=== PATIENT | male | born 1945 | race African-American/Black ===

== ENCOUNTER 2019-10-24 17:53 | Emergency (ER) | payer MEDICARE, OTHER ==
[~2019-10-24] VITALS: Ht 180.3 cm; Wt 79.1 kg
[~2019-10-24 17:53] MED LIST: ASPIRIN E.C. 8181 MG PO; FIBRE1 TAB PO; MULTIPLE VITAMI1 CAP PO; PERCOCET 325 MG1 TA2 PO; PERCOCET PO; VITAMIN C500 MG PO; XANAX 1MG1 MG PO; ZANTAC 7575 MG PO
[2019-10-24 18:43] LABS: BASO % 0.4 % (0.0-2.0); EOS # 0.1 (0.0-0.7); EOS % 0.7 % (0-4.0); GRAN # 6.5 (1.4-6.5); GRAN % 63.9 % (42.2-75.2); HEMATOCRIT 38.7 % (42.0-52.0); HEMOGLOBIN 13.6 g/dl (13.5-18.0); LYMPH # 2.9 (1.2-3.4); LYMPH % 28.6 % (20.0-51.0); MEAN CELL VOLUME 86 fl (80.0-100.0); MEAN CORPUSCULAR HEMOGLOBIN 30 pg (27.0-31.0); MEAN CORPUSCULAR HGB CONC 35 g/dl (33.0-37.0); MEAN PLATELET VOLUME 9.1 fl (7.4-10.4); MONO # 0.6 (0.1-0.6); PLATELET COUNT 225 K/mm3 (130-400); REDCELL DISTRIBUTION WIDTH-CV 13.2 % (11.5-14.5)
[2019-10-24 18:56] LABS: ALBUMIN 4.4 gm/dL (3.5-5.0); BILIRUBIN,TOTAL 0.6 mg/dL (0.0-1.0); C-REACTIVE PROTEIN 1.2 mg/dL (0.0-0.9); CALCIUM 9.7 mg/dL (8.4-10.2); CREATININE, serum 1.38 (0.66-1.25); TOTAL PROTEIN 8.7 gm/dL (6.4-8.2)
[2019-10-24 19:05] LABS: ERYTHROCYTE SEDIMENTATION RATE 20 mm/hr (0-30)
[2019-10-24 20:00] VITALS: BP 146/78; PULSE 78; TEMP 97.8
== END 2019-10-24 20:03 | disposition home or self-care (01) ==
LOC: COL.ER 17:53
PROVIDERS: Emergency Medicine
DX: M72.2 Plantar fascial fibromatosis (principal)
CPT/HCPCS: J1885

== ENCOUNTER → 2020-04-03 | Outpatient (CLI) | payer MEDICARE, OTHER | LOC: COL.RAD 08:15 | DX: N28.1 Cyst of kidney, acquired (principal) ==

== ENCOUNTER 2020-05-16 06:48 | Day surgery (SDC) | payer MEDICARE, OTHER ==
[~2020-05-16] VITALS: Ht 180.3 cm; Wt 79.1 kg
[2020-05-16 07:29] VITALS: BP 135/77; PULSE 86; TEMP 98.5
[2020-05-16] MEDS ORDERED: FIBERCON PO (07:37)
[2020-05-16] MEDS ORDERED: ONE-A-DAY ESSE1 EACH PO (07:38)
--- NOTE | 2020-05-16 07:40 | NUR ---
TO RM 8 AT 0655- CALL LIGHT IN REACH
[2020-05-16 10:05] VITALS: BP 143/72; PULSE 57; TEMP 98.5
--- NOTE | 2020-05-16 10:05 | NUR ---
TO 8 PER CART FROM PACU. ALERT ORIENTED X3, TALKING WITH STAFF. UPON RETURNING TO USED THE URINAL. VOIDED 400CC LIGHT COLORED HEMATURIA. DR SHARIF INTO TALK WITH PATIENT. HE TOLD THE PATIENT HE WOULD CALL HIM ONCE THE BIOPSIED WERE BACK.
[2020-05-16 10:20] VITALS: BP 119/76; PULSE 73
--- NOTE | 2020-05-16 10:20 | NUR ---
RECEIVED WATER, COFFEE AND MUFFIN. PATIENT SITTING ON SIDE OF BED.
[2020-05-16 10:35] VITALS: BP 142/77; PULSE 73
--- NOTE | 2020-05-16 10:35 | NUR ---
ATE 100% AND REQUESED 2ND CUP OF COFFEE. ASKED FOR COFFEE TO BE HOTTER. RECEIVED 2ND CUP OF HOTTER COFFEE.
[2020-05-16 10:50] VITALS: BP 122/80; PULSE 82
--- NOTE | 2020-05-16 10:50 | NUR ---
SIPPING 2ND CUP OF COFFEE AND STATED IT WAS MUCH BETTER. RECEIVED DISCHARGE INSTRUCTIONS AND VERBALIZED UNDERSTANDING. DISCONTINUED IV AND INT- CATHETER INTACT PATIENT GETTING DRESSED.
--- NOTE | 2020-05-16 11:15 | NUR ---
DISCHARGED PER WC BY NURSING STAFF TO PRIVATE CAR IN CARE OF MYA.
== END 2020-05-16 11:32 | disposition home or self-care (01) ==
LOC: SDCO 06:48
DX: C66.1 Malignant neoplasm of right ureter (principal); N13.30 Unspecified hydronephrosis; F41.9 Anxiety disorder, unspecified; G40.909 Epilepsy, unspecified, not intractable, without status epilepticus; Z90.79 Acquired absence of other genital organ(s)
CPT/HCPCS: C1769; J0690; J1100; J2405; J2704; J3010; J7120

== ENCOUNTER 2020-06-10 08:24 | Inpatient (IN) | payer MEDICARE, OTHER ==
[~2020-06-10] VITALS: Ht 180.3 cm; Wt 75.6 kg
[~2020-06-10 08:24] MED LIST changes: +FIBERCON PO; +ONE-A-DAY ESSE1 EACH PO
[2020-06-17] VITALS (9 sets, daily range): BP systolic 127–156; BP diastolic 68–98; PULSE 58–78; TEMP 97.8–98.4
--- NOTE | 2020-06-17 15:16 | NUR ---
PT TRANSFERRED BY PACU NURSE TO ROOM 325. PT DENIES PAIN, IS DROWSY BUT AROUSES TO NAME. 5 LAP SITES ASSESSED AT HAND OFF. NO DRAINAGE NOTED IN JYOTI DRAIN, MILD DRAINAGE NOTED TO 2X2 GAUZE, OUTLINED WITH SHARPY. LEWIS DRAINED AND NO OUTPUT AT HANDOFF, 300ML OF LR HANGING. PT VS WNL.
--- NOTE | 2020-06-17 17:56 | NUR ---
PT C/O PAIN IN ABD WELL AN UPSET STOMACH. PRN ZOFRAN ADMINISTERED. AND 2 EXTRA STRENGTH TYLENOLS GIVEN WITH TRAMADOL. AN HOUR AND 40 MINUTES LATER PT RATED PAIN AT AN 8. PRN ROXICODONE GIVEN AT THIS TIME. PT TOLERATING WATER AND BROTH FROM DINNER TRAY WELL. SAYS STOMACH UPSET IS BETTER.
[2020-06-18 20:00] VITALS: BP 102/62; PULSE 75; TEMP 98.3
--- NOTE | 2020-06-18 20:00 | NUR ---
Report received, assumed care for retail shift manager. Assessment complete. VS stable. Very confused conversation. Thinks he is at home and that there are people robbing him in his home. Attempt made to reorient but states "I need to get the hell our of here and smoke." Denies pain/nausea/shortness of breath. Olmos cath with light pink output. Tolerating PO. SCDs bilat. Call light in reach. Will monitor.
--- NOTE | 2020-06-18 22:30 | NUR ---
Called Jayne- of patient as he is adamant that he is leaving. Jayne spoke with patient to try to calm him down. Has tried to climb out of bed, remove gutierrez cath and has DCd INT to left forearm. Jayne states that if he doesnt calm down to call her back-requesting to come up to sit with patient. Informed that I did recently give him his HS xanax and will re-evaluate to see if we could get approval for that. Denies any other questions/concerns. Call light in reach/bed alarm on. Will monitor.
--- NOTE | 2020-06-18 23:30 | NUR ---
Continues to try to get out of bed and remove gutierrez cath. States we have tied him to the bed and he just wants out of the "torture chamber." Removed SCDs at this time due to causing increased agitation. No IV access currently-has DCd two so far this shift. Will wait for placement of another one until family gets here. Call light in reach. Will monitor.
[2020-06-18 23:59] VITALS: BP 121/71; PULSE 77; TEMP 97.9
--- NOTE | 2020-06-19 01:00 | NUR ---
Resting in bed eyes closed/audible snore. Call light in reach/bed alarm on. Will monitor.
[2020-06-19 05:30] VITALS: BP 112/68; PULSE 88; TEMP 98
[2020-06-19 06:48] LABS: HEMOGLOBIN 12.7 g/dl (13.5-18.0); MEAN CELL VOLUME 87 fl (80.0-100.0); MEAN CORPUSCULAR HEMOGLOBIN 31 pg (27.0-31.0); MEAN CORPUSCULAR HGB CONC 35 g/dl (33.0-37.0); MEAN PLATELET VOLUME 9.3 fl (7.4-10.4); PLATELET COUNT 203 K/mm3 (130-400); RED BLOOD COUNT 4.16 M/mm3 (4.20-5.60); REDCELL DISTRIBUTION WIDTH-CV 13.4 % (11.5-14.5)
[2020-06-19 07:03] LABS: CALCIUM 9.2 mg/dL (8.4-10.2); CREATININE, serum 1.39 (0.66-1.25)
--- NOTE | 2020-06-19 07:59 | NUR ---
HOSPITALIST CONSULT CALLED TO JON[facility] TAYLOR FOR MEDICATIONS RECOMMENDATIONS FOR POST-OP DELIRIUM.
[2020-06-19 08:15] VITALS: BP 106/78; PULSE 88; TEMP 98.4
--- NOTE | 2020-06-19 08:45 | NUR ---
*Late Entry-06/18/20* ROSALBA met with the patient to discuss discharge plan. The patient lives in [place] with his , Jayne (ph#[phone]). He reports independence with ADLs and has a cane. The patient's PCP is Dr. Viet Sanchez and he receives his medications from [facility]. He reports no difficulties obtaining his meds. The patient does not have a DPOA-HC, but he was interested in obtaining a form. ROSALBA provided. The patient plans to return home with his upon discharge. No additional needs at this time.
[2020-06-19 10:50] LABS: BASO % 0.1 % (0.0-2.0); EOS % 0.1 % (0-4.0); GRAN # 11.1 (1.4-6.5); GRAN % 74.9 % (42.2-75.2); HEMATOCRIT 38.8 % (42.0-52.0); HEMOGLOBIN 13.6 g/dl (13.5-18.0); LYMPH # 2.6 (1.2-3.4); LYMPH % 17.8 % (20.0-51.0); MEAN CELL VOLUME 88 fl (80.0-100.0); MEAN CORPUSCULAR HEMOGLOBIN 31 pg (27.0-31.0); MEAN CORPUSCULAR HGB CONC 35 g/dl (33.0-37.0); MEAN PLATELET VOLUME 9.4 fl (7.4-10.4); MONO % 6.6 % (1.7-9.3); PLATELET COUNT 234 K/mm3 (130-400); RED BLOOD COUNT 4.41 M/mm3 (4.20-5.60); REDCELL DISTRIBUTION WIDTH-CV 13.5 % (11.5-14.5)
[2020-06-19 12:02] LABS: CALCIUM 9.5 mg/dL (8.4-10.2); CREATININE, serum 1.41 (0.66-1.25); POTASSIUM 4.6 mmol/L (3.4-5.0)
[2020-06-19 12:25] VITALS: BP 109/63; PULSE 81; TEMP 97.6
[2020-06-19 12:48] LABS: COLLECTION METHOD CATHETER
[2020-06-19 13:03] LABS: URINE APPEARANCE Cloudy; URINE COLOR Red
[2020-06-19 13:04] LABS: PH 6 (5-8); URINE GLUCOSE Negative (NEGATIVE); URINE KETONE Negative (NEGATIVE); URINE PROTEIN(semi-quant) 2+ (NEGATIVE)
[2020-06-19 13:05] LABS: URINE BILIRUBIN Negative (NEGATIVE); URINE UROBILINOGEN Negative (NEGATIVE)
--- NOTE | 2020-06-19 13:05 | NUR ---
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 No needs right now.
[2020-06-19 13:06] LABS: SQUAMOUS EPITHELIAL None Seen /hpf; URINE BLOOD 3+ (NEGATIVE); URINE LEUKOCYTE ESTERASE 2+ (NEGATIVE); URINE NITRATE Negative (NEGATIVE); URINE RBC >50 /hpf
[2020-06-19 13:07] LABS: URINE BACTERIA None Seen /hpf
--- NOTE | 2020-06-19 13:44 | NUR ---
Pt sitting in the chair watching TV and visiting wih . He has his call light and personal items in reach. He denies pain. No other needs at this time.
[2020-06-19 16:23] VITALS: BP 103/67; PULSE 78; TEMP 98.5
--- NOTE | 2020-06-19 19:00 | NUR ---
patient assisted back into bed. present at the bedside. bed alarm on. call light within reach. no needs at this time.
[2020-06-19 20:27] VITALS: BP 109/87; PULSE 77; TEMP 98.5
--- NOTE | 2020-06-19 20:49 | NUR ---
Patient resting in bed. He has some confusion and is asking for his . Melatonin administered with night medications. Patient's gutierrez draining dark, blood tinged urine. Bed alarm is on and call light is in reach.
[2020-06-20 00:24] VITALS: BP 138/86; PULSE 60; TEMP 98.3
[2020-06-20 03:27] VITALS: BP 127/80; PULSE 62; TEMP 98.3
--- NOTE | 2020-06-20 03:44 | NUR ---
Patient requested some food so a sandwich box was given. Fluids have been encouraged throughout the shift. Patient's urine is still dark.
[2020-06-20 07:34] LABS: HEMOGLOBIN 12.7 g/dl (13.5-18.0); MEAN CELL VOLUME 88 fl (80.0-100.0); MEAN CORPUSCULAR HEMOGLOBIN 31 pg (27.0-31.0); MEAN CORPUSCULAR HGB CONC 35 g/dl (33.0-37.0); MEAN PLATELET VOLUME 9.2 fl (7.4-10.4); PLATELET COUNT 215 K/mm3 (130-400); RED BLOOD COUNT 4.11 M/mm3 (4.20-5.60); REDCELL DISTRIBUTION WIDTH-CV 13.6 % (11.5-14.5)
[2020-06-20 07:43] LABS: ALBUMIN 3.5 gm/dL (3.5-5.0); BILIRUBIN,TOTAL 0.4 mg/dL (0.0-1.0); CALCIUM 9.2 mg/dL (8.4-10.2); CREATININE, serum 1.45 (0.66-1.25); POTASSIUM 3.9 mmol/L (3.4-5.0); TOTAL PROTEIN 6.9 gm/dL (6.4-8.2)
[2020-06-20 08:20] VITALS: BP 114/65; PULSE 67; TEMP 98.6
--- NOTE | 2020-06-20 09:24 | NUR ---
PT UP IN BED, ATE BREAKFAST, PT FEELING BETTER TODAY WITH CONFUSION DISSAPATING OVERNIGHT. HOSPITALIST HAS SIGNED OFF AND DR SHARIF IN THIS AM. PLAN ON DISCHARGE LATER TODAY. MYA PT'S HERE AT THIS TIME, DR SHARIF NOTIFIED PER REQUEST. PHYSICIAN IS SPEAKING WITH AT THIS TIME.
[2020-06-20 12:04] VITALS: BP 124/78; PULSE 69; TEMP 98.5
--- NOTE | 2020-06-20 12:58 | NUR ---
ROSALBA met with the patient and his , Jayne, to review d/c plan. OT is recommending home health. Jayne reports that she feels comfortable with the patient returning back home and would be interested in home health and chose [facility]. ROSALBA contacted and faxed a referral to Felipa at [facility]. Felipa reports that they are able to accept the patient for services and that she has already been in contact with the patient's .
--- NOTE | 2020-06-20 13:25 | NUR ---
LEG BAG TEACHING COMPLETE. MYA PT'S VERBALIZED UNDERSTANDING.
--- NOTE | 2020-06-20 14:53 | NUR ---
DISCHARGE COMPLETE. REVIEWED DIRECTIONS AND LEG BAG/ LEWIS TEACHING WITH . MYA VERBALIZED UNDERSTANDING. PT TAKEN TO FRONT IN WHEEL CHAIR FOR DISCHARGE.
== END 2020-06-20 15:05 | disposition home or self-care (01) | DRG 654 ==
LOC: INPTSU 06-17 09:33 → SURG 06-17 12:15
PROVIDERS: ADMIT Urology
PROC: 0TB64ZZ Excision of Right Ureter, Percutaneous Endoscopic Approach (ICD-10-PCS; 2020-06-17)
PROC: 8E0W4CZ Robotic Assisted Procedure of Trunk Region, Percutaneous Endoscopic Approach (ICD-10-PCS; 2020-06-17)
PROC: 0TS64ZZ Reposition Right Ureter, Percutaneous Endoscopic Approach (ICD-10-PCS; 2020-06-17)
PROC: 0T764DZ Dilation of Right Ureter with Intraluminal Device, Percutaneous Endoscopic Approach (ICD-10-PCS; 2020-06-17)
PROC: 0TSB4ZZ Reposition Bladder, Percutaneous Endoscopic Approach (ICD-10-PCS; principal; 2020-06-17 12:15)
DX: C66.1 Malignant neoplasm of right ureter (principal); N13.39 Other hydronephrosis; F05 Delirium due to known physiological condition; N17.9 Acute kidney failure, unspecified; K59.00 Constipation, unspecified; T40.605A Adverse effect of unspecified narcotics, initial encounter; D64.9 Anemia, unspecified; M54.9 Dorsalgia, unspecified; G89.29 Other chronic pain; F17.290 Nicotine dependence, other tobacco product, uncomplicated; N18.30 Chronic kidney disease, stage 3 unspecified; F41.9 Anxiety disorder, unspecified; Z85.46 Personal history of malignant neoplasm of prostate
CPT/HCPCS: 99223; 99231-AI; A4314; A9284; C2617; J0690; J1650; J2270; J2405; J2704; J3010; J7120

== ENCOUNTER → 2020-06-25 | Outpatient (CLI) | payer MEDICARE, OTHER | LOC: COL.RAD 08:00 | DX: C66.1 Malignant neoplasm of right ureter (principal); S37.20XA Unspecified injury of bladder, initial encounter; Z96.0 Presence of urogenital implants | CPT/HCPCS: Q9967 ==

== ENCOUNTER 2020-09-27 05:39 | Emergency (ER) | payer MEDICARE, OTHER ==
[~2020-09-27] VITALS: Ht 180.3 cm; Wt 80.5 kg
[2020-09-27 05:45] VITALS: TEMP 98.2
[2020-09-27 06:45] VITALS: BP 123/74; PULSE 64
== END 2020-09-27 06:52 | disposition home or self-care (01) ==
LOC: COL.ER 05:39
DX: S09.90XA Unspecified injury of head, initial encounter (principal); F41.9 Anxiety disorder, unspecified; N18.30 Chronic kidney disease, stage 3 unspecified; F17.210 Nicotine dependence, cigarettes, uncomplicated; Z79.899 Other long term (current) drug therapy; W18.30XA Fall on same level, unspecified, initial encounter; Y92.091 Bathroom in other non-institutional residence as the place of occurrence of the external cause

== ENCOUNTER → 2020-10-14 | Outpatient (CLI) | payer MEDICARE, OTHER | LOC: COL.RAD 13:11 | DX: C66.1 Malignant neoplasm of right ureter (principal); N28.1 Cyst of kidney, acquired; N26.1 Atrophy of kidney (terminal); N28.89 Other specified disorders of kidney and ureter ==

== ENCOUNTER 2020-10-30 14:15 | Outpatient (RCR) | payer MEDICARE, OTHER | END 2020-11-03 | disposition home or self-care (01) | LOC: WSPT | DX: R26.81 Unsteadiness on feet (principal) ==

== ENCOUNTER 2020-11-21 14:15 | Outpatient (RCR) | payer MEDICARE, OTHER | END 2020-11-21 16:00 | disposition home or self-care (01) | LOC: WSPT 14:15 | DX: R26.89 Other abnormalities of gait and mobility (principal) ==

== ENCOUNTER 2021-06-19 13:30 | Outpatient (RCR) | payer MEDICARE, OTHER | END 2021-06-22 | disposition home or self-care (01) | LOC: WSPT | DX: R26.89 Other abnormalities of gait and mobility (principal) ==

== ENCOUNTER → 2021-07-13 13:00 | Outpatient (RCR) | payer MEDICARE, OTHER | END | disposition home or self-care (01) | LOC: WSPT 06-25 14:50 | DX: R26.81 Unsteadiness on feet (principal) ==

== ENCOUNTER 2021-12-10 12:31 | Day surgery (SDC) | payer MEDICARE, OTHER ==
[~2021-12-10] VITALS: Ht 180.3 cm; Wt 73.1 kg
[2021-12-10 13:41] VITALS: BP 116/67; PULSE 74; TEMP 99.3
--- NOTE | 2021-12-10 14:02 | NUR ---
Initial visit; Patient requests prayer, High Rigger offered comfort, encouragement and prayer for Oly and his family prior to his surgical Procedure. Family thanked High Rigger for praying. It was a blessing to meet Oly and family.
[2021-12-10 16:00] VITALS: BP 141/71; PULSE 67
--- NOTE | 2021-12-10 16:00 | NUR ---
PATIENT RECEIVED FROM PACU ACCOMPANIED BY DALIA ADAME AND AROUSES TO VERBAL STIMULI. IV FLUIDS INFUSING AND SITE IS FREE OF REDNESS. ROOM AIR SATS 96%. FAMILY IN THE ROOM. SIDERAILS UP X2 AND CALL LIGHT IN REACH. GIVEN ORANGE JUICE TO DRINK.
[2021-12-10 16:15] VITALS: BP 134/81; PULSE 57
--- NOTE | 2021-12-10 16:15 | NUR ---
ASSISTED UP TO THE BATHROOM AND USES WALKER TO TRANSFER SELF. IV TO INT.
--- NOTE | 2021-12-10 16:23 | NUR ---
RETURNS TO ROOM. VOIDED PINK TINGED URINE. TOLERATES ACTIVITY WELL. INT DISCONTINUED AND SITE IS FREE OF REDNESS. ASSISTED WITH DRESSING BY FAMILY.
--- NOTE | 2021-12-10 16:40 | NUR ---
DISMISSAL INSTRUCTIONS GIVEN TO SPOUSE AND PATIENT. BOTH VERBALIZE UNDERSTANDING OF THESE. ASSISTED INTO WHEELCHAIR.
--- NOTE | 2021-12-10 16:51 | NUR ---
PATIENT DISMISSED TO HOME PER PRIVATE VEHICLE DRIVEN BY SPOUSE. DISMISSAL INSTRUCTIONS IN HAND. WAS TAKEN TO THE FRONT DOOR PER WHEELCHAIR AND ASSITED INTO CAR.
[2021-12-10 17:20] VITALS: BP 141/71; PULSE 62; TEMP 99.1
== END 2021-12-10 16:51 | disposition home or self-care (01) ==
LOC: SDCO 12:31
DX: D41.4 Neoplasm of uncertain behavior of bladder (principal); D41.11 Neoplasm of uncertain behavior of right renal pelvis; Z85.46 Personal history of malignant neoplasm of prostate; Z85.54 Personal history of malignant neoplasm of ureter
CPT/HCPCS: C1769; C2617; J0690; J1100; J2405; J2704; J3010; J7120

== ENCOUNTER 2022-04-14 13:45 | Outpatient (RCR) | payer MEDICARE, OTHER ==
[~2022-04-14 13:45] MED LIST changes: +MELATIN 3 MG-11 TAB PO; +NICODERM C21 MG/PATC TD; +TYLENOL 325MG325 MG PO
[2023-04-06] MEDS ORDERED: EXELON 1.5MG1.5 MG PO (14:47)
[2023-04-06] MEDS ORDERED: SINEMET 25/101 UDTAB PO (14:48)
[2023-04-06] MEDS ORDERED: MELATONIN1 MG PO (15:14)
[2023-04-06] MEDS ORDERED: TYLENOL 325MG325 MG PO (15:15)
[2023-04-11] MEDS ORDERED: TYLENOL 325MG325 MG PO (10:18)
[2023-04-11] MEDS ORDERED: RT Albuterol HFA MDI IH (10:18)
== END 2022-04-24 | disposition home or self-care (01) ==
LOC: MKS.ESL.PT
DX: R13.10 Dysphagia, unspecified (principal)

== ENCOUNTER 2022-06-07 13:30 | Outpatient (RCR) | payer MEDICARE, OTHER | END 2022-06-15 15:32 | disposition home or self-care (01) | LOC: MKS.ESL.PT 13:30 | DX: R13.10 Dysphagia, unspecified (principal) ==